=== PATIENT | female | born 1990 | race Caucasian/White ===

== ENCOUNTER 2016-06-27 15:38 | Emergency (ER) ==
[2016-06-27 16:10] LABS: URINE SOURCE CLEAN CATCH
[2016-06-27 16:27] LABS: BILIRUBIN URINE NEGATIVE (NEGATIVE); BLOOD URINE NEGATIVE (NEGATIVE); CLARITY CLEAR (CLEAR); COLOR YELLOW; GLUCOSE URINE NEGATIVE (NEGATIVE); LEUKOCYTES URINE 1+ (NEGATIVE); NITRITE URINE NEGATIVE (NEGATIVE); PROTEIN URINE NEGATIVE (NEGATIVE); SP GRAVITY URINE 1.015; UROBILINOGEN URINE NORMAL
[2016-06-27 16:29] LABS: URINE CULTURE PL NEEDED? YES; URINE EPITHELIAL CELLS <10 /HPF (<10); URINE WBC <10 /HPF (<10)
[2016-06-27 18:49] LABS: AGAP 11; ALBUMIN 4.6 g/dL (3.5-5.0); ALKALINE PHOSPHATASE 60 U/L (32-104); BUN 9 mg/dL (8-22); CALCIUM 9.1 mg/dL (8.8-10.2); CHLORIDE 104 mmol/L (98-107); COSMO 273; GOT 17 U/L (10-30); GPT 10 U/L (10-36); SODIUM 137 mmol/L (136-145); TCO2 22 mmol/L (25-35); TOTAL PROTEIN 7.3 g/dL (6.3-8.3)
[2016-06-27 18:56] LABS: AMYLASE 62 U/L (20-200); LIPASE 25 U/L (13-60)
--- NOTE | 2016-06-27 18:57 | PROVIDER DOCUMENTATION ---
HPI-General Adult - General Source: patient - History of Present Illness -Gen Adult Nature of Presenting Problems: 25 y/o F presents to the ED with Nausea, dizziness, weak feeling, sweaty and chill only after eating. Pt states she does not have a gallbladder and thinks it is her sugar. Pt says she has chronic anemia Location of Pain/Injury: reports: generalized Pain Radiation: reports: no radiation Quality of Pain: reports: cramping Severity: reports: moderate Onset/Duration: reports: other (after eating) Timing: reports: gone now Associated Symptoms: reports: dizziness, fever/chills, nausea. denies: diarrhea , sinus congestion/drainage, shortness of breath, vomiting, trouble walking Similar Symptoms Previously?: No Recently seen or treated by another doctor?: Yes <Caleb Askew - Last Filed: 06/27/16 19:48> <Adithya Spivey - Last Filed: 06/27/16 20:01> - General Chief Complaint: General Adult Stated Complaint: BLOOD SUGAR PROBLEMS Time Seen by Provider: 06/27/16 18:30 Allergies/Adverse Reactions: Patient Allergies Allergy/AdvReac Type Severity Reaction Status Date / Time No Known Allergies Allergy Verified 07/08/14 23:36 Home Medications: Home Medication List Medication Instructions Recorded Confirmed Last Taken Type Famotidine [Pepcid] 20 mg PO BID #30 tablet 06/27/16 Unknown Rx Review of Systems - Adult - REVIEW OF SYSTEMS - ADULT Constitutional: reports: chills, fever Eyes: reports: no symptoms reported Ears, Nose, Mouth & Throat: denies: ear pain, sinus problem, throat pain Cardiovascular: denies: chest pain, edema, palpitations, syncope Respiratory: denies: chronic cough, cough Gastrointestinal: reports: abdominal pain, nausea. denies: constipation, vomiting Genitourinary: denies: dysuria, flank pain, hematuria, urgency Musculoskeletal: reports: muscle weakness. denies: bone pain, back pain, joint pain, neck pain Integumentary: reports: no symptoms reported Neurological: reports: no symptoms reported Psychiatric: reports: no symptoms reported Endocrine: reports: no symptoms reported Hematologic/Lymphatic: reports: no symptoms reported Allergic/Immunologic: reports: no symptoms reported All Other Systems: Reviewed and Negative <Caleb Askew - Last Filed: 06/27/16 19:48> Past History - Adult - PAST MEDICAL HISTORY-ADULT Review of Records: reports: Old Records Reviewed, Nursing Assessment Review, Medications Reviewed Endocrine/Immune: reports: anemia - PRIOR SURGERIES/PROCEDURES Surgical/Procedure History: reports: cholecystectomy - SOCIAL HISTORY Smoking: non-smoker <Caleb Askew - Last Filed: 06/27/16 19:48> Physical Exam-General - PHYSICAL EXAM-ADULT Initial Vital Signs Reviewed: Yes - CONSTITUTIONAL General Appearance: appears well, alert, no apparent distress - EYES Eyes: PERRL/EOMI, pink conjunctivae - HEAD, EARS, NOSE, MOUTH & THROAT HENMT: moist mucous membranes, normal ENT inspection, TMs normal, pharynx normal - NECK Neck: non-tender, full range of motion, supple - RESPIRATORY Respiratory: lungs clear, normal breath sounds, no pleuratic chest pain, no respiratory distress - CARDIOVASCULAR Cardiovascular: normal peripheral pulses, regular rate, rhythm - GASTROINTESTINAL (ABDOMEN) Abdominal Exam: normal bowel sounds, non tender, soft - MUSCULOSKELETAL Back Exam: normal inspection, no CVA tenderness, no vertebral tenderness Extremity: normal range of motion, non-tender, normal gait, normal inspection - SKIN Integumentary: normal color, normal turgor, warm/dry - NEUROLOGIC Neurologic: grossly normal, no motor/sensory deficits - PSYCHIATRIC Psych/Mental Status: normal mood/affect, normal thought content <Caleb Askew - Last Filed: 06/27/16 19:48> Progress - PLAN OF CARE/RESULTS Progress/Plan/Lab Results: Laboratory Tests 06/27/16 06/27/16 06/27/16 15:52 15:52 17:35 WBC RBC Hgb Hct MCV MCH MCHC RDW Std Deviation Plt Count MPV Immature Gran % (Auto) Neut % (Auto) Lymph % (Auto) [place] % (Auto) Eos % (Auto) Baso % (Auto) Immature Gran # (Auto) Neut # (Auto) Lymph # (Auto) [place] # (Auto) Eos # (Auto) Baso # (Auto) Segmented Neutrophils Lymphocytes Monocytes Eosinophils Microcytosis Sodium 137 Potassium 4.0 Chloride 104 Carbon Dioxide 22 L Anion Gap 11 BUN 9 Creatinine 0.6 Estimated GFR/1.73 m2 > 60 BUN/Creatinine Ratio 15 Glucose 99 Calculated Osmolality 273 Calcium 9.1 Total Bilirubin 0.20 AST 17 ALT 10 Alkaline Phosphatase 60 Total Protein 7.3 Albumin 4.6 Globulin 3.0 Albumin/Globulin Ratio 2.0 Amylase Lipase Urine Source CLEAN CATCH Urine Color YELLOW Urine Clarity CLEAR Urine pH 6.0 Ur Specific [place] 1.015 Urine Protein NEGATIVE Urine Ketones NEGATIVE Urine Blood NEGATIVE Urine Nitrite NEGATIVE Urine Bilirubin NEGATIVE Urine Urobilinogen NORMAL Urine Microscopic RBC Not Reportable Urine WBC 1+ A Urine Microscopic WBC <10 Ur Epithelial Cells <10 Urine Bacteria 2+ Urine Glucose NEGATIVE Urine Test NEGATIVE 06/27/16 06/27/16 18:30 18:30 WBC 9.14 RBC 4.60 Hgb 9.9 L Hct 32.1 L MCV 69.8 L MCH 21.5 L MCHC 30.8 L RDW Std Deviation 16.9 H Plt Count 349 MPV 12.7 H Immature Gran % (Auto) 0.0 Neut % (Auto) 63.2 Lymph % (Auto) 27.8 [place] % (Auto) 6.6 Eos % (Auto) 2.1 Baso % (Auto) 0.3 Immature Gran # (Auto) 0.00 Neut # (Auto) 5.78 Lymph # (Auto) 2.54 [place] # (Auto) 0.60 H Eos # (Auto) 0.19 Baso # (Auto) 0.03 Segmented Neutrophils 70 Lymphocytes 20 L Monocytes 6 Eosinophils 4 Microcytosis 3+ Sodium Potassium Chloride Carbon Dioxide Anion Gap BUN Creatinine Estimated GFR/1.73 m2 BUN/Creatinine Ratio Glucose Calculated Osmolality Calcium Total Bilirubin AST ALT Alkaline Phosphatase Total Protein Albumin Globulin Albumin/Globulin Ratio Amylase 62 Lipase 25 Urine Source Urine Color Urine Clarity Urine pH Ur Specific [place] Urine Protein Urine Ketones Urine Blood Urine Nitrite Urine Bilirubin Urine Urobilinogen Urine Microscopic RBC Urine WBC Urine Microscopic WBC Ur Epithelial Cells Urine Bacteria Urine Glucose Urine Test Orders Category Date Time Status FLAT/UPRIGHT ABD/1 VIEW CHEST [RAD] Stat Exams 06/27/16 19:20 Taken AMYLASE [CHEM] Stat Lab 06/27/16 18:30 Completed CBC WITH DIFF [HEME] Stat Lab 06/27/16 18:30 Completed COMPREHENSIVE METABOLIC PANEL [CHEM] Stat Lab 06/27/16 17:35 Completed LIPASE [CHEM] Stat Lab 06/27/16 18:30 Completed TEST-URINE [PREG] Stat Lab 06/27/16 15:[address] W/POSS RFLX CULT [URINALYSIS] Stat Lab 06/27/16 15:52 Completed URINE CULTURE [RM] Routine Lab 06/27/16 16:30 Ordered Vital Signs Temp Pulse Resp BP Pulse Ox 06/27/16 15:43 98.4 F 87 18 107/67 100 No Known Allergies Allergy (Verified 07/08/14 23:36) No Home Medications 06/27/16 Laboratory 06/27/16 06/27/16 06/27/16 18:30 18:30 17:35 WBC 9.14 RBC 4.60 Hgb 9.9 L Hct 32.1 L MCV 69.8 L MCH 21.5 L MCHC 30.8 L RDW Std Deviation 16.9 H Plt Count 349 MPV 12.7 H Immature Gran % (Auto) 0.0 Neut % (Auto) 63.2 Lymph % (Auto) 27.8 [place] % (Auto) 6.6 Eos % (Auto) 2.1 Baso % (Auto) 0.3 Immature Gran # (Auto) 0.00 Neut # (Auto) 5.78 Lymph # (Auto) 2.54 [place] # (Auto) 0.60 H Eos # (Auto) 0.19 Baso # (Auto) 0.03 Segmented Neutrophils 70 Lymphocytes 20 L Monocytes 6 Eosinophils 4 Microcytosis 3+ Sodium 137 Potassium 4.0 Chloride 104 Carbon Dioxide 22 L Anion Gap 11 BUN 9 Creatinine 0.6 Estimated GFR/1.73 m2 > 60 BUN/Creatinine Ratio 15 Glucose 99 Calculated Osmolality 273 Calcium 9.1 Total Bilirubin 0.20 AST 17 ALT 10 Alkaline Phosphatase 60 Total Protein 7.3 Albumin 4.6 Globulin 3.0 Albumin/Globulin Ratio 2.0 Amylase 62 Lipase 25 Urine Source Urine Color Urine Clarity Urine pH Ur Specific [place] Urine Protein Urine Ketones Urine Blood Urine Nitrite Urine Bilirubin Urine Urobilinogen Urine Microscopic RBC Urine WBC Urine Microscopic WBC Ur Epithelial Cells Urine Bacteria Urine Glucose Urine Test 06/27/16 06/27/16 15:52 15:52 WBC RBC Hgb Hct MCV MCH MCHC RDW Std Deviation Plt Count MPV Immature Gran % (Auto) Neut % (Auto) Lymph % (Auto) [place] % (Auto) Eos % (Auto) Baso % (Auto) Immature Gran # (Auto) Neut # (Auto) Lymph # (Auto) [place] # (Auto) Eos # (Auto) Baso # (Auto) Segmented Neutrophils Lymphocytes Monocytes Eosinophils Microcytosis Sodium Potassium Chloride Carbon Dioxide Anion Gap BUN Creatinine Estimated GFR/1.73 m2 BUN/Creatinine Ratio Glucose Calculated Osmolality Calcium Total Bilirubin AST ALT Alkaline Phosphatase Total Protein Albumin Globulin Albumin/Globulin Ratio Amylase Lipase Urine Source CLEAN CATCH Urine Color YELLOW Urine Clarity CLEAR Urine pH 6.0 Ur Specific [place] 1.015 Urine Protein NEGATIVE Urine Ketones NEGATIVE Urine Blood NEGATIVE Urine Nitrite NEGATIVE Urine Bilirubin NEGATIVE Urine Urobilinogen NORMAL Urine Microscopic RBC Not Reportable Urine WBC 1+ A Urine Microscopic WBC <10 Ur Epithelial Cells <10 Urine Bacteria 2+ Urine Glucose NEGATIVE Urine Test NEGATIVE +++++++++++++++++ - XRAY 2 XRAY Study: Chest, Abdomen Impression: Abnormal XRAY Interpretation: Constipation: no free air read by Dr Spivey <Caleb Askew - Last Filed: 06/27/16 19:48> Departure <Caleb Askew - Last Filed: 06/27/16 19:48> - Departure Time of Disposition Order: 19:59 Certified Medical Emergency: Emergent <Adithya Spivey - Last Filed: 06/27/16 20:01> - Departure DIAGNOSIS: Dyspepsia Anemia Qualifiers: Anemia type: iron deficiency Iron deficiency anemia type: unspecified iron deficiency Qualified Code(s): D50.9 - Iron deficiency anemia, unspecified Disposition: HOME 01 Condition: Stable Additional Instructions: CALL DR JAMIN BABCOCK ED Follow Up Instructions: You have been treated by a care provider in the Emergency Department. These instructions are being provided to you so you can have an understanding of how to care for yourself upon discharge. Upon discharge from the Emergency Department, you are responsible for making arrangements for follow-up care by a physician of your choice. Take all prescribed medications as directed. Return to the Emergency Department immediately for any new or worsening symptoms. You may call the Physician Referral phone number at [phone] to obtain a list of Physicians who are taking new patients. Prescriptions: Famotidine [Pepcid] 20 mg PO BID #30 tablet Attestation - Scribe Verification/Attestation Scribe:: Caleb Askew Acting as Scribe for:: Adithya Spivey Scribe documention review:: This chart was documented by a scribe and accurately reflects the service the provider performed and the decisions made by the provider. <Speegle,Caleb - Last Filed: 06/27/16 19:48> Physician Attestation
[2016-06-27 19:23] LABS: BASO% 0.3 % (0.0-0.8); EOS# 0.19 X1000 (0.0-0.7); EOS% 2.1 % (0.0-10.0); HEMATOCRIT 32.1 % (37.0-47.0); HEMOGLOBIN 9.9 g/dL (12.0-16.0); LYMPH# 2.54 X1000 (1.2-3.4); LYMPH% 27.8 % (20.5-51.1); MANUAL DIFF NEEDED? YES; MCH 21.5 PG (27-31); MCHC 30.8 g/dL (33-37); MCV 69.8 FL (81-99); MONO% 6.6 % (1.7-9.3); MPV 12.7 FL (7.4-10.4); NEUT% 63.2 % (42.2-75.2); PLT 349 X1000 (130-400)
[2016-06-27 19:24] LABS: EOS 4 % (1-10); LYMPHS 20 % (21-51); MONO 6 % (1-9)
[2016-06-27] MEDS ORDERED: SORBITOL PO ONE (19:58)
[2016-06-27] MEDS ORDERED: PEPCID PO ONE (19:58)
[2016-06-27 20:12] VITALS: BP 110/72
--- NOTE | 2016-06-28 06:36 | Diag Imaging Result Document ---
PROCEDURE NAME: FLAT/UPRIGHT ABD/1 VIEW CHEST - 06/27/2016 FLAT AND UPRIGHT AND CHEST, 3 VIEWS: COMPARISON: The chest is compared to 06/07/2013. FINDINGS: The lungs are well expanded. No pneumonia. No cardiomegaly. No free air beneath the diaphragm. There are surgical clips in the upper right abdomen consistent with a cholecystectomy. There is stool throughout the colon. The bowel loops are not dilated. No organomegaly. Mild scoliosis. No abnormal abdominal or pelvic calcifications. IMPRESSION: 1. Constipation. 2. Cholecystectomy.
== END 2016-06-27 20:12 | disposition home or self-care (01) ==
LOC: P.ED 15:38
DX: R10.13 Epigastric pain (principal); D50.9 Iron deficiency anemia, unspecified; R11.0 Nausea; R42 Dizziness and giddiness; R53.1 Weakness; R61 Generalized hyperhidrosis; R50.9 Fever, unspecified; R10.84 Generalized abdominal pain
CPT/HCPCS: 74022; 80053; 81001; 81025; 82150; 83690; 85025; 87088; 99284